=== PATIENT | male | born 1965 | race Caucasian/White ===

== ENCOUNTER 2018-04-04 07:49 | Day surgery (SDC) | payer OTHER ==
[~2018-04-04 07:49] MED LIST: PROPOFOL 200 MG INJ
[2018-04-04] MEDS ORDERED: LIDOCAINE 100 MG SYRINGE (10:10)
[2018-04-04] MEDS ORDERED: PROPOFOL 40 ML (10:10)
== END 2018-04-04 14:34 | disposition home or self-care (01) ==
LOC: GIL 07:49
DX: Z12.11 Encounter for screening for malignant neoplasm of colon (principal); K57.30 Diverticulosis of large intestine without perforation or abscess without bleeding
CPT/HCPCS: 45378